=== PATIENT | male | born 1995 | race African-American/Black ===

== ENCOUNTER 2017-01-09 20:46 | Inpatient (IN) | payer OTHER ==
--- NOTE | ~2017-01-09 | CO ---
Unit #: [id number] #: [id number] Patient: SANTA [place] [id number] [facility] [address] [place] [address] [id number] I MR#: [id number] NAME: SANTA MI ROOM: [facility]5 Age: 21 Sex: M Admission Date: 01/09/2017 : 1995 Attending Physician: Pancho Landa M.D. CONSULTATION REPORT Medical consult was requested by Dr. Landa. This is a followup to the original consult. HISTORY OF PRESENT ILLNESS She was found to have BNP of 1300 and bilateral lower extremity edema 2+. On 01/10/2017, he was transferred to [facility]. There, repeat potassium was 4.0, which is an improvement from 3.3, and [facility] Today he continues to have 2+ pitting edema in his feet and is unable to answer any questions appropriately. He has been sleeping on and off this morning and has been a little more agitated than normal. PHYSICAL EXAMINATION CARDIAC: Regular rate and rhythm. No murmurs, gallops, or rubs. 2+ pitting edema in bilateral lower extremities. RESPIRATORY: Diminished breath sounds due to the patient's uncooperative with deep breathing during exam. ASSESSMENT AND PLAN Edema. We will continue with Lasix 20 mg p.o. daily and add potassium 20 mEq p.o. daily as well as begin daily weights and strict I's and O's. We will repeat BMP and BNP on 01/12/2017. Please call with results. Dictated by... Marisela Joseph A.P.R.N. for Jessica Perez/israel TD: 01/11/2017 13:05 JOB #: [id number] CONSULTATION REPORT Page 1 of 1 X MARISELA SALINAS APRN X CONSULTATION REPORT
--- NOTE | ~2017-01-09 | PN ---
Unit #: [id number] #: [id number] Patient: RANCHO [place] [id number] [facility] [address] [place] [address] [id number] I MR#: [id number] NAME: RANCHO MI ROOM: P106 Age: 21 Sex: M Admission Date: 01/09/2017 : 1995 Attending Physician: Pancho Landa M.D. Admitting Physician: Pancho Landa M.D. Primary Care Physician: No Primary Care Physician [facility] PROGRESS NOTES DATE 01/17/2017 DISCUSSION Rancho is still somewhat disoriented but is less confused, less irritable and less hostile today. Staff reports he has had a good day, although he was found in a female peers room yesterday. There appeared to be no sexual context to this and he was easily redirected. He is alert and oriented to person, partially to location and time. Memory and concentration are only fair. His through process still tend to be rambling but his speech is more coherent. ASSESSMENT Psychosis and general medical condition. PLAN Continue current treatment plan, which appears to be showing improvement and anticipate discharge in the near future. Dictated by... Jessica MarkhamH/ts TD: 01/20/2017 08:28 JOB #: [id number] [facility] PROGRESS NOTES Page 1 of 1 X Pancho Landa MD PROGRESS NOTE
--- NOTE | ~2017-01-09 | PA ---
Unit #: [id number] #: [id number] Patient: RANCHO JUNIOR [id number] [facility] [address] [place] [address] [id number] I MR#: [id number] NAME: RANCHO JUNIOR ROOM: [facility]6 Age: 21 Sex: M Admission Date: 01/09/2017 : 1995 Date of Assessment: 01/10/2017 Attending Physician: Pancho Landa M.D. Admitting Physician: Pancho Landa M.D. Primary Care Physician: Primary Care Physician No PSYCHIATRIC ASSESSMENT DATE OF SERVICE 01/10/2017. INFORMANTS The patient, partially reliable; OLOP, reliable; Druze Amlin, reliable. CHIEF COMPLAINT Psychosis. HISTORY OF PRESENT ILLNESS Rancho Junior is a 21-year-old man with apparent history of schizophrenia, who was released from halfway on the date of admission after charges of DUI. He was seen in the emergency room and appeared to be in a both psychotic paranoid and medically disoriented state. After he was medically cleared at the emergency room, [facility] PAST PSYCHIATRIC HISTORY Apparent diagnosis of schizophrenia with previous treatment with Trileptal and Seroquel. We have no confirmation of previous inpatient care for at this time and we will try to reach his family for confirmation. FAMILY PSYCHIATRIC HISTORY There is none reported. SOCIAL HISTORY The patient appears to be quite psychotic and is unable to provide a reliable social history. PAST MEDICAL HISTORY The patient has cellulitis and lymphedema in his feet. MEDICATIONS None currently. ALLERGIES No known medication allergies. SUBSTANCE ABUSE HISTORY None known. MENTAL STATUS EXAMINATION Unit #: [id number] #: [id number] Patient: RANCHO JUNIOR The patient presented as a disheveled man, who appeared his stated age. He had difficulty cooperating with the examination. His speech was mumbling and rapid and difficult to understand. Musculoskeletal examination demonstrated mild psychomotor agitation. His mood was labile with a flat affect. He appeared alert, but oriented to person and partially location only. Memory and concentration were extremely poor and his thought processes appeared rambling and psychotic. Insight and judgment were fair. Fund of knowledge and abstraction were fair. ASSETS AND LIABILITIES The patient is youthful and has medical insurance. Liabilities include apparent noncompliance with medication. ADMITTING DIAGNOSES AXIS I: Schizophrenia, paranoid type, F20.0. AXIS II: No diagnosis. AXIS III: Cellulitis and lymphedema. AXIS IV: AXIS V: PSYCHIATRIC PLAN The patient was admitted and placed on psychosis precautions. He was sent to the emergency room by our special forces medical sergeant for evaluation of his edema and we will follow their recommendations. We will confirm his medications Trileptal and Seroquel and restart them as appropriate. TREATMENT GOALS Resolution of psychosis, improvement in insight, and improvement in coping skills. DISCHARGE PLANNING Follow up with community mental health and primary care physician. ESTIMATED LENGTH OF STAY 5 days. Dictated by... Pancho Landa M.D. SHANITA/israel TD: 01/22/2017 05:42 JOB #: [id number] PSYCHIATRIC ASSESSMENT Page 1 of 1 X Pancho Landa MD X PSYCHIATRIC ASSESSMENT
--- NOTE | ~2017-01-09 | PN ---
Unit #: [id number] #: [id number] Patient: RANCHO [place] [id number] [facility] [address] [place] [address] [id number] I MR#: [id number] NAME: RANCHO MI ROOM: [facility]6 Age: 21 Sex: M Admission Date: 01/09/2017 : 1995 Attending Physician: Pancho Landa M.D. Admitting Physician: Pancho Landa M.D. Primary Care Physician: Primary Care Physician [facility] PROGRESS NOTES DATE 01/20/2017 DISCUSSION Rancho continues to show stability this morning. He appears less psychotic and much less irritable and is fully oriented with a euthymic mood but a flat affect. His memory and concentration appear fair and his thought processes are nonpsychotic but concrete. ASSESSMENT Psychotic disorder NOS. PLAN Anticipate discharge tomorrow. Dictated by... Jessica MarkhamH/dzh TD: 01/22/2017 22:47 JOB #: [id number] [facility] PROGRESS NOTES Page 1 of 1 X Pancho Landa MD PROGRESS NOTE
--- NOTE | ~2017-01-09 | PN ---
Unit #: [id number] #: [id number] Patient: SANTA MI [id number] [facility] [address] [place] [address] [id number] I MR#: [id number] NAME: SANTA MI ROOM: [facility]6 Age: 21 Sex: M Admission Date: 01/09/2017 : 1995 Attending Physician: Pancho Landa M.D. Admitting Physician: Pancho Landa M.D. Primary Care Physician: Primary Care Physician No [facility] PROGRESS NOTES DATE 01/15/2017 DISCUSSION The patient is seen in the day room today for Dr. Landa in Dr. Landa' absence. The patient is denying any suicidal or homicidal ideation. He requests that he be given "his graduation stuff" and then is noted to be loudly mimicking driving an automobile complete with automobile sound effects. Dr. Landa will reassume care of the patient tomorrow. Dictated by... Steven Heart M.D. CB/saw TD: 01/15/2017 14:53 JOB #: [id number] [facility] PROGRESS NOTES Page 1 of 1 X Steven Heart MD X PROGRESS NOTE
--- NOTE | ~2017-01-09 | PN ---
Unit #: [id number] #: [id number] Patient: RANCHO MI [id number] [facility] [address] [place] [address] [id number] I MR#: [id number] NAME: RANCHO MI ROOM: P106 Age: 21 Sex: M Admission Date: 01/09/2017 : 1995 Attending Physician: Pancho Landa M.D. Admitting Physician: Pancho Landa M.D. Primary Care Physician: Primary Care Physician [facility] PROGRESS NOTES DATE 01/19/2017 DISCUSSION Rancho is improved today with less confusion, much less hostility, mild irritability, but no active aggression or plans to harm self or others. He is tolerating medications with no problems and appears to be considerably improved. He signed in the hospital voluntarily. 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 PLAN Will schedule patient for discharge tomorrow when transportation is available. He will follow up with [facility] in [place]. Dictated by... Jessica Markham/geo TD: 01/21/2017 08:39 JOB #: [id number] [facility] PROGRESS NOTES Page 1 of 1 X Pancho Landa MD PROGRESS NOTE
--- NOTE | ~2017-01-09 | CO ---
Unit #: [id number] #: [id number] Patient: RANCHO [place] [id number] [place] [address] [id number] I MR#: [id number] NAME: RANCHO MI ROOM: [facility]5 Age: 21 Sex: M Admission Date: 01/09/2017 : 1995 Attending Physician: Pancho Landa M.D. Consultation Date: 01/10/2017 CONSULTATION REPORT Medical consult was requested by Dr. Landa and completed on 01/10/2017. HISTORY OF PRESENT ILLNESS Rancho was evaluated at [facility] on 01/09/2017 for lower leg edema. He was diagnosed there with cellulitis after Doppler negative of chest x-ray. He did however have a BNP of 1300 and a potassium of 3.3. He was started on Keflex, Bactrim, and Lasix today, though lower extremity edema has continued. He is unable to answer any questions appropriately and not really cooperative with physical examination. Information is taken from staff reports and medical records. PHYSICAL EXAMINATION CARDIAC: Regular rate and rhythm. No murmur, gallop, or rub. EXTREMITIES: 2+ bilateral lower extremity edema. SKIN: No redness or warmth of the skin. RESPIRATORY: Diminished breath sounds, unable to get a clear evaluation. The patient does not cooperate with exam and stops breathing when I am trying to listen. He finally does breath small shallow breaths and no breath sounds were heard. ASSESSMENT AND PLAN Bilateral lower extremity edema with a BNP of 1300 due to his known history and the patient unable to verbalize any symptoms or cooperate with the exam. I have discussed all findings with Dr. Sousa and he agrees the patient should be transferred to [facility] for further evaluation. Dictated by... Marisela Joseph A.P.R.N. for Jessica Perez/israel TD: 01/10/2017 18:25 JOB #: [id number] Unit #: [id number] #: [id number] Patient: RANCHO MI CONSULTATION REPORT Page 1 of 1 X MARISELA SALINAS APRN CONSULTATION REPORT
--- NOTE | ~2017-01-09 | DS ---
Unit #: [id number] #: [id number] Patient: RANCHO MI [id number] [facility] [address] [place] [address] [id number] I MR#: [id number] NAME: RANCHO MI ROOM: [facility]6 Age: 21 Sex: M Admission Date: 01/09/2017 : 1995 Discharge Date: 01/21/2017 Attending Physician: Pancho Landa M.D. Primary Care Physician: Primary Care Physician No DISCHARGE SUMMARY REASON FOR ADMISSION Rancho is a 21-year-old man with an unclear history of schizophrenia versus another psychotic disorder. He showed up to [facility] with edema in his feet and appeared to be disoriented. After assessment there, [facility] DIAGNOSTIC STUDIES LABORATORY RESULTS: Please see hospital chart. HOSPITAL COURSE Rancho was admitted and placed on psychosis precautions. He was sent to [facility] for evaluation of lower extremity edema and was treated by our medical consultants. He did not require initiation of an antipsychotic medication, as he appeared to be primarily delirious, although he was agitated and required oral haloperidol at times. Eventually, Trileptal 300 mg b.i.d. and Seroquel 300 mg at bedtime were restarted from his outpatient provider, which appeared to be effective. He slowly improved and was able to demonstrate less confusion and less hostility and less irritability on the date of discharge. DISCHARGE DIAGNOSES AXIS I: Schizophrenia, paranoid type, F20.0. AXIS II: No diagnosis. AXIS III: Lower extremity edema. AXIS IV: AXIS V: DISCHARGE INSTRUCTIONS Follow up with [facility] in his home area and with his primary care physician. DISCHARGE MEDICATIONS Trileptal 300 mg b.i.d. for mood stability; Seroquel 300 mg at bedtime for psychosis; Bactrim DS one tablet b.i.d. until gone for cellulitis; Keflex 500 mg t.i.d. for cellulitis; potassium chloride 20 mEq daily for potassium replacement. CONDITION AT DISCHARGE Improved. PROGNOSIS Unit #: [id number] #: [id number] Patient: RANCHO MI Fair to good. DIET AND ACTIVITY Per primary care physician. Dictated by... Pancho Landa M.D. [facility]/modl TD: 01/22/2017 03:55 JOB #: [id number] DISCHARGE SUMMARY Page 1 of 1 X Pancho Landa MD DISCHARGE SUMMARY
--- NOTE | ~2017-01-09 | HP ---
Unit #: [id number] #: [id number] Patient: RANCHO MI [id number] [facility] [address] [place] [address] [id number] I MR#: [id number] NAME: RANCHO MI ROOM: P256 Age: 21 Sex: M Admission Date: 01/09/2017 : 1995 Attending Physician: Pancho Landa M.D. Admitting Physician: Pancho Landa M.D. Primary Care Physician: Primary Care Physician No HISTORY AND PHYSICAL HISTORY OF PRESENT ILLNESS Rancho is a 21-year-old male admitted on 01/09/[address] [place] [address] for schizophrenia. He has paranoia and nonsensical speech. He was recently evaluated at [facility], for edema in his legs, and he is unable to answer questions appropriately. Therefore, all informations were taken from records and staff reports. PAST MEDICAL HISTORY None documented on exam. At [facility] ER, he was found to have edema in his legs and diagnosed with cellulitis. PAST SURGICAL HISTORY None documented. SOCIAL HISTORY No known history of tobacco, alcohol, or illegal drug use. He is going to be single with an unknown living situation. FAMILY HISTORY Noncontributory. REVIEW OF SYSTEMS The patient unable to answer any questions appropriately. He does not appear to be in any acute distress. However, he does have significant edema in legs and no respiratory distress. PHYSICAL EXAMINATION GENERAL: Disoriented to person, place, and time. No acute distress. VITAL SIGNS: Blood pressure 131/85, heart rate 82. Refused height and weight. CARDIAC: Regular rate and rhythm. No murmur, gallop, or rub. 2+ pitting edema in bilateral lower extremities. RESPIRATORY: Unable to evaluate respiratory status due to the patient uncooperative with exam. Does not appear to be in any acute distress. Staff denies audible coughing. SKIN: Possible edema versus dryness of the lower lip. IMPRESSION 1. Psychiatric admission. 2. Lower extremity edema. RECOMMENDATIONS PSYCHIATRIC: Per psychiatrist. Unit #: [id number] #: [id number] Patient: RANCHO MI MEDICAL: No contraindication to participate in this facility's activities. Medical consult was requested and completed. The patient will be transferred to ER for an evaluation. Please see medical dictation. MEDICAL PROGNOSIS Good. MEDICAL CONDITION Needs further evaluation. Dictated by... Loki Chris/saw TD: 01/10/2017 13:40 JOB #: [id number] HISTORY AND PHYSICAL Page 1 of 1 X CHAPIS SALINAS APRN X HISTORY AND PHYSICAL
== END 2017-01-21 10:25 | disposition home or self-care (01) | DRG 885 ==
LOC: P2L 20:46 → POF 01-10 21:33 → P2L 01-10 21:39 → P1S 01-13 14:15
DX: F20.0 Paranoid schizophrenia (principal); F29 Unspecified psychosis not due to a substance or known physiological condition; L03.119 Cellulitis of unspecified part of limb; I89.0 Lymphedema, not elsewhere classified
CPT/HCPCS: J0515; J1200; J1630

== ENCOUNTER 2017-01-10 13:33 | Emergency (ER) | payer OTHER ==
--- NOTE | ~2017-01-10 | CR72 ---
[facility] A Service [facility] RADIOLOGY TEXT RESULTS PATIENT: SANTA MI LOCATION: [facility] : [birth year] UNIT #: [id number] AGE: [address]: Jayson Almonte MD SEX: M ORDER DR: [id number] [place] [id number] [facility]. [place], [place] [address] [id number] MR#: [id number] Acc #: [id number] NAME: SANTA MI : 1995 SEX: M STUDY DATE/TIME: 01/10/2017 13:35 UNIT: [facility] ROOM: STUDY DESCRIPTION: CR Chest Single View Portable Attending Physician: Jayson Almonte M.D. Referring Physician: Adarsh Self Referred Ordering Physician: Jayson Almonte M.D. Primary Care Physician: No Primary Care Physician MEDICAL IMAGING REPORT This report is preliminary unless electronic signature is present EXAM Single view of the chest dated 01/10/2017 at 1335 hours. COMPARISON Single view chest dated 01/09/2017. HISTORY Bilateral leg swelling, mild congestion for 2 days. Patient is unable to follow breathing instructions. FINDINGS Frontal view of the chest was obtained. A single AP portable view of the chest shows both lungs to be clear. The heart is normal in size. The mediastinal contour is normal. No significant bone abnormalities are seen. IMPRESSION Normal portable chest. Dictated by... Nevin Faye M.D. THIS IS AN ELECTRONICALLY VERIFIED REPORT Nevin Faye M.D. at 01/12/2017 1:50 PM CPR/tmw TD: 01/10/2017 15:06 JOB #: [id number] MEDICAL IMAGING REPORT [facility] A Service of [facility] RADIOLOGY TEXT RESULTS PATIENT: SANTA MI LOCATION: [facility] : [birth year] UNIT #: [id number] AGE: [address]: Jayson Almonte MD SEX: M ORDER DR: Page 1 of 1 COPY
[2017-01-10 14:56] LABS: BASOPHIL# 0.1 X10e3 (0-0.3); BASOPHIL% 1.2 % (0-2.5); EOSINOPHIL% 0.7 % (0.0-7.0); HEMATOCRIT 43.5 % (38.0-50.0); HEMOGLOBIN 13.7 gm/dL (13.0-16.0); LYMPHOCYTE% 33.4 % (17.0-45.0); MEAN CELL VOLUME 86.2 FL (83-96); MEAN CORPUSCULAR HEMOGLOBIN 27.1 PG (28-34); MEAN CORPUSCULAR HGB CONC 31.5 g/dL (30-36); MONOCYTE# 0.4 X10e3 (0-1.0); MONOCYTE% 6.8 % (3.0-12.0); NEUTROPHIL# 3.4 X10e3 (1.5-7.1); NEUTROPHIL% 57.9 % (40-75); PLATELET COUNT 333 X10e3 (140-420); RED BLOOD COUNT 5.05 X10e (3.90-5.60); RED CELL DISTRIBUTION WIDTH 13.2 % (11.0-15.5); WHITE BLOOD COUNT 5.9 X10e3 (4.0-10.5)
[2017-01-10 15:09] LABS: DIFF IND NO
[2017-01-10 15:20] LABS: ALBUMIN SERUM 4.2 g/dL (3.5-5.0); BILIRUBIN,TOTAL 1.2 mg/dL (0.2-2.0); BUN/CREATININE RATIO 13.33; CALCIUM SERUM 9.2 mg/dL (8.4-10.2); CREATININE SERUM 0.9 mg/dL (0.6-1.4); PROTEIN TOTAL SERUM 7.5 g/dL (6.0-8.3)
== END 2017-01-10 17:50 ==
LOC: CED 13:33
PROVIDERS: Emergency Medicine
DX: M79.89 Other specified soft tissue disorders (principal); F20.9 Schizophrenia, unspecified
CPT/HCPCS: 71010; 80053; 83880; 85025; 99283